=== PATIENT | male | born 1955 | race Caucasian/White ===

== ENCOUNTER 2017-02-13 17:36 | Emergency (ER) | payer MEDICARE ==
[2017-02-13 18:12] LABS: Mean Cell Volume 87.7 fl (78-100); Mean Corpuscular Hemoglobin 26.9 pg (26-32); Mean Platelet Volume 10.6 fl (6-9.5); Platelet Count 152 K/mm3 (150-450); Red Blood Count 5.05 M/mm3 (4.1-5.6); Red Cell Distribution Width 15.2 % (11.5-14.0); White Blood Count 11.4 K/mm3 (4.0-10.5)
--- NOTE | 2017-02-13 18:17 | ERPHSYRPT ---
- History of Present Illness Time Seen by Provider: 02/13/17 17:45 Source: patient Patient Subjective Stated Complaint: pt states he has had a fever for e past few days and states he has had hematuria for the past week. denies any vomiting. denies any cough. Triage Nursing Assessment: pt flushed warm, dry. hematuria noted with clots in urine sample. Physician History: CC: aches Hx: 62 y/o male patient had diarrhea Wednesday. Fever and chills and myalgias now. He has hematuria and increased urinary frequency. He has fever and chills. urinating every 1 hour. Some dribbling. Chronic low back pain. He is a chronic drinker of alcohol. No chest or abd pain. No rash. Timing/Duration: day(s) (couple) Severity: moderate Allergies/Adverse Reactions: No Known Drug Allergies Allergy (Unverified 02/13/17 18:03) Home Medications: Aspirin EC 81 mg [Ecotrin 81 mg] 81 tab PO DAILY 03/16/12 [History] Hx Tetanus, Diphtheria Vaccination/Date Given: Yes (unknown) Hx Influenza Vaccination/Date Given: No Hx Pneumococcal Vaccination/Date Given: No Immunizations Up to Date: Yes - Review of Systems Constitutional: Fever, Chills, Fatigue, Malaise, Weakness Eyes: No Symptoms Ears, Nose, & Throat: No Throat Pain Respiratory: Cough Cardiac: No Chest Pain Abdominal/Gastrointestinal: Diarrhea (Wednesday), No Abdominal Pain, No Nausea, No Vomiting, No Hematochezia Genitourinary Symptoms: Frequency, Hematuria, No Dysuria Skin: No Rash Neurological: No Headache All Other Systems: Reviewed and Negative - Past Medical History Pertinent Past Medical History: Yes Neurological History: No Pertinent History ENT History: No Pertinent History Cardiac History: No Pertinent History Respiratory History: No Pertinent History Endocrine Medical History: No Pertinent History Musculoskeletal History: Fractures GI Medical History: No Pertinent History History: Other Psycho-Social History: No Pertinent History Male Reproductive Disorders: Other Other Medical History: BOTH LUNGS COLLAPSED -2010. LEFT HIP FRACTURE. PT TAKES SCHEULED FLOMAX (UNSURE WHY). - Past Surgical History Past Surgical History: Yes Neuro Surgical History: No Pertinent History Cardiac: No Pertinent History Respiratory: Other Gastrointestinal: Appendectomy Genitourinary: No Pertinent History Musculoskeletal: Orthopedic Surgery Male Surgical History: No Pertinent History Other Surgical History: left hip fx. and previous left wrist fx - Social History Smoking Status: Current every day smoker How long have you smoked: 48 Exposure to second hand smoke: Yes Alcohol Use: Chronic Drug Use: marijuana Patient Lives Alone: No Significant Family History: no pertinent family hx - Nursing Vital Signs Nursing Vital Signs: Initial Vital Signs Temperature 98.5 F 02/13/17 17:56 Pulse Rate 78 02/13/17 17:56 Respiratory Rate 22 02/13/17 17:56 Blood Pressure 160/94 02/13/17 17:56 O2 Sat by Pulse Oximetry 95 02/13/17 17:56 Pain Scale Pain Intensity 0 - Physical Exam General Appearance: alert Eye Exam: PERRL/EOMI Ears, Nose, Throat Exam: moist mucous membranes Neck Exam: normal inspection, non-tender, supple Respiratory Exam: diminished breath sounds Cardiovascular Exam: regular rate/rhythm Gastrointestinal/Abdomen Exam: soft, No tenderness, No distention, No guarding Male Genitalia Exam: normal genitalia, No testicular tenderness Neurologic Exam: alert, oriented x 3, cooperative, sensation nml, No motor deficits Skin Exam: dry, other (cool skin) SpO2 Interpretation: normal SpO2: 95 Oxygen Delivery: Room Air - Course Nursing assessment & vital signs reviewed: Yes EKG Interpreted by Me: RATE (76), Sinus Rhythm, NORMAL AXIS, NORMAL INTERVALS ( QTc 425), NORMAL QRS, NORMAL ST-T - Radiology Exams cxr X-ray Interpretation: Interpreted by me (RLL infiltrate, moderate congestion, CM.) - Radiology Ultrasound Exam renal Ultrasound: Other (per RDMS: left intraparenchymal stones, no hydronephrosis, no significant urine retention, bladder wall thickneing. Round multiple hyperechoic lesions within the spleen.) Ordered Tests: Active Orders 24 hr Category Date Time Status [place] Worker STAT Care 02/13/17 17:55 Active Clean Catch Urine Specimen STAT Care 02/13/17 17:55 Active EKG-ER Only STAT Care 02/13/17 17:55 Active Pulse Oximetry (ED) STAT Care 02/13/17 17:55 Active Saline Lock STAT Care 02/13/17 17:55 Active CHEST 1 VIEW (PORTABLE) Stat Exams 02/13/17 17:55 Taken KIDNEY [US] Stat Exams 02/13/17 18:22 Ordered BLOOD CULTURE Stat Lab 02/13/17 18:25 Received CBC W DIFF Stat Lab 02/13/17 17:50 Completed CK-Creatinine Phosphokinase Stat Lab 02/13/17 17:56 Completed CMP Stat Lab 02/13/17 17:50 Completed CULTURE, THROAT Stat Lab 02/13/17 17:20 Received CULTURE,URINE Stat Lab 02/13/17 17:50 Received ETHYL ALCOHOL Stat Lab 02/13/17 17:50 Completed Lactic Acid Stat Lab 02/13/17 18:04 Completed Manual Differential NC Stat Lab 02/13/17 17:50 Completed PROTIME WITH INR Stat Lab 02/13/17 17:50 Completed PTT Stat Lab 02/13/17 17:50 Completed STREP SCREEN-BETA A Stat Lab 02/13/17 17:20 Completed UA W/ MICROSCOPIC Stat Lab 02/13/17 17:50 Completed Urine Triage Profile Stat Lab 02/13/17 17:50 Completed Lab/Rad Data: Laboratory Result Diagrams 02/13/17 17:50 02/13/17 17:50 Laboratory Results 02/13/17 02/13/17 02/13/17 Range/Units 18:04 17:56 17:50 WBC (4.0-10.5) K/mm3 RBC (4.1-5.6) M/mm3 Hgb (12.5-18.0) gm/dl Hct (42-50) % MCV (78-100) fl MCH (26-32) pg MCHC (32-36) g/dl RDW (11.5-14.0) % Plt Count (150-450) K/mm3 MPV (6-9.5) fl INR (0.8-3.0) APTT (24.1-36.1) SECONDS Sodium (136-145) mEq/L Potassium (3.5-5.1) mEq/L Chloride (98-107) mEq/L Carbon Dioxide (21-32) mEq/L Anion Gap (5-15) MEQ/L BUN (9-20) mg/dL Creatinine (0.55-1.30) mg/dl Estimated GFR ML/MIN Glucose (70-110) MG/DL Lactic Acid 1.0 (0.4-2.0) Calcium (8.5-10.1) mg/dL Total Bilirubin (0.2-1.0) mg/dL AST (15-37) U/L ALT (12-78) U/L Alkaline Phosphatase (46-116) U/L Creatine Kinase 25 L (39-308) U/L Serum Total Protein (6.4-8.2) gm/dL Albumin (3.4-5.0) g/dL Ur Collection Type Urine Color (YELLOW) Urine Appearance (CLEAR) Urine pH (5-6) Ur Specific [place] (1.005-1.025) Urine Protein (Negative) Urine Ketones (NEGATIVE) Urine Blood (0-5) Joe/ul Urine Nitrite (NEGATIVE) Urine Bilirubin (NEGATIVE) Urine Urobilinogen (0-1) mg/dL Ur Leukocyte Esterase (NEGATIVE) Urine Microscopic RBC (0-2) /HPF Urine Microscopic WBC (0-5) /HPF Urine Bacteria (NEGATIVE) /HPF Urine Glucose (NEGATIVE) mg/dL Urine Opiates Level NEG. (NEGATIVE) Ur Methadone NEG. (NEGATIVE) Urine Barbiturates NEG. (NEGATIVE) Ur Phencyclidine (PCP) NEG. (NEGATIVE) Urine Amphetamine NEG. (NEGATIVE) U Benzodiazepine Level NEG. (NEGATIVE) Urine Cocaine NEG. (NEGATIVE) Urine Marijuana (THC) NEG. (NEGATIVE) Ethyl Alcohol (0.00-0.01) % Streptococcus Screen (Negative) Specimen Received 02/13/17 02/13/17 02/13/17 Range/Units 17:50 17:50 17:50 WBC (4.0-10.5) K/mm3 RBC (4.1-5.6) M/mm3 Hgb (12.5-18.0) gm/dl Hct (42-50) % MCV (78-100) fl MCH (26-32) pg MCHC (32-36) g/dl RDW (11.5-14.0) % Plt Count (150-450) K/mm3 MPV (6-9.5) fl INR 1.15 (0.8-3.0) APTT 29.1 (24.1-36.1) SECONDS Sodium 139 (136-145) mEq/L Potassium 4.5 (3.5-5.1) mEq/L Chloride 102 (98-107) mEq/L Carbon Dioxide 26.4 (21-32) mEq/L Anion Gap 15.2 H (5-15) MEQ/L BUN 26 H (9-20) mg/dL Creatinine 1.02 (0.55-1.30) mg/dl Estimated GFR > 60 ML/MIN Glucose 108 (70-110) MG/DL Lactic Acid (0.4-2.0) Calcium 9.2 (8.5-10.1) mg/dL Total Bilirubin 0.70 (0.2-1.0) mg/dL AST 23 (15-37) U/L ALT 65 (12-78) U/L Alkaline Phosphatase 79 (46-116) U/L Creatine Kinase (39-308) U/L Serum Total Protein 7.6 (6.4-8.2) gm/dL Albumin 3.0 L (3.4-5.0) g/dL Ur Collection Type Urine Color (YELLOW) Urine Appearance (CLEAR) Urine pH (5-6) Ur Specific [place] (1.005-1.025) Urine Protein (Negative) Urine Ketones (NEGATIVE) Urine Blood (0-5) Joe/ul Urine Nitrite (NEGATIVE) Urine Bilirubin (NEGATIVE) Urine Urobilinogen (0-1) mg/dL Ur Leukocyte Esterase (NEGATIVE) Urine Microscopic RBC (0-2) /HPF Urine Microscopic WBC (0-5) /HPF Urine Bacteria (NEGATIVE) /HPF Urine Glucose (NEGATIVE) mg/dL Urine Opiates Level (NEGATIVE) Ur Methadone (NEGATIVE) Urine Barbiturates (NEGATIVE) Ur Phencyclidine (PCP) (NEGATIVE) Urine Amphetamine (NEGATIVE) U Benzodiazepine Level (NEGATIVE) Urine Cocaine (NEGATIVE) Urine Marijuana (THC) (NEGATIVE) Ethyl Alcohol < 0.010 (0.00-0.01) % Streptococcus Screen (Negative) Specimen Received 02/13/17 02/13/17 02/13/17 Range/Units 17:50 17:50 17:20 WBC 11.4 H (4.0-10.5) K/mm3 RBC 5.05 (4.1-5.6) M/mm3 Hgb 13.6 (12.5-18.0) gm/dl Hct 44.3 (42-50) % MCV 87.7 (78-100) fl MCH 26.9 (26-32) pg MCHC 30.7 L (32-36) g/dl RDW 15.2 H (11.5-14.0) % Plt Count 152 (150-450) K/mm3 MPV 10.6 H (6-9.5) fl INR (0.8-3.0) APTT (24.1-36.1) SECONDS Sodium (136-145) mEq/L Potassium (3.5-5.1) mEq/L Chloride (98-107) mEq/L Carbon Dioxide (21-32) mEq/L Anion Gap (5-15) MEQ/L BUN (9-20) mg/dL Creatinine (0.55-1.30) mg/dl Estimated GFR ML/MIN Glucose (70-110) MG/DL Lactic Acid (0.4-2.0) Calcium (8.5-10.1) mg/dL Total Bilirubin (0.2-1.0) mg/dL AST (15-37) U/L ALT (12-78) U/L Alkaline Phosphatase (46-116) U/L Creatine Kinase (39-308) U/L Serum Total Protein (6.4-8.2) gm/dL Albumin (3.4-5.0) g/dL Ur Collection Type CLEAN CATCH Urine Color RED (YELLOW) Urine Appearance CLOUDY (CLEAR) Urine pH 7.5 (5-6) Ur Specific [place] 1.010 (1.005-1.025) Urine Protein 30 (Negative) Urine Ketones NEGATIVE (NEGATIVE) Urine Blood 250 (0-5) Joe/ul Urine Nitrite POSITIVE (NEGATIVE) Urine Bilirubin NEGATIVE (NEGATIVE) Urine Urobilinogen NORMAL (0-1) mg/dL Ur Leukocyte Esterase 2+ (NEGATIVE) Urine Microscopic RBC >100 (0-2) /HPF Urine Microscopic WBC 50-100 (0-5) /HPF Urine Bacteria MANY (NEGATIVE) /HPF Urine Glucose NEGATIVE (NEGATIVE) mg/dL Urine Opiates Level (NEGATIVE) Ur Methadone (NEGATIVE) Urine Barbiturates (NEGATIVE) Ur Phencyclidine (PCP) (NEGATIVE) Urine Amphetamine (NEGATIVE) U Benzodiazepine Level (NEGATIVE) Urine Cocaine (NEGATIVE) Urine Marijuana (THC) (NEGATIVE) Ethyl Alcohol (0.00-0.01) % Streptococcus Screen NEGATIVE (Negative) Specimen Received 02/13/17 7270 - Progress Progress Note: 02/13/17 19:04 Pt denies taking blood thinners at present. He has UTI and some pneumonia on cxr. Uncertain etiology of splenic lesions. Called Dr Sara Enriquez and will place in obs for IV levaquin. Discussed with DrElizabeth: Terri Will see patient in: hospital (observation) Counseled pt/family regarding: lab results, diagnosis, need for follow-up, rad results - Departure Time of Disposition: 19:05 Departure Disposition: Observation Clinical Impression: UTI (urinary tract infection), Hematuria, RLL pneumonia, Lesion of spleen Condition: Fair Critical Care Time: No
[2017-02-13 18:29] LABS: INR 1.15 (0.8-3.0); PROTIME 12.8 SECONDS (8.83-12.87)
[2017-02-13 18:32] LABS: PTT 29.1 SECONDS (24.1-36.1)
[2017-02-13 18:34] LABS: Collection Type CLEAN CATCH
[2017-02-13 18:38] LABS: ALKALINE PHOSPHATASE 79 U/L (46-116); ANION GAP 15.2 MEQ/L (5-15); BLOOD UREA NITROGEN 26 mg/dL (9-20); CHLORIDE 102 mEq/L (98-107); Carbon Dioxide 26.4 mEq/L (21-32); Glucose 108 MG/DL (70-110); Potassium 4.5 mEq/L (3.5-5.1); SGOT/AST 23 U/L (15-37); SGPT/ALT 65 U/L (12-78); SODIUM 139 mEq/L (136-145); Total Protein 7.6 gm/dL (6.4-8.2)
[2017-02-13 18:47] LABS: Leukocyte Esterase 2+ (NEGATIVE)
[2017-02-13 18:48] LABS: Bilirubin NEGATIVE (NEGATIVE); Blood 250 Ery/ul (0-5); COMPLETE URINE MICROSCOPIC? YES; Glucose NEGATIVE (NEGATIVE)
[2017-02-13 18:51] LABS: Bacteria MANY /HPF (NEGATIVE); WBC 50-100 /HPF (0-5)
[2017-02-13] MEDS ORDERED: LEVOFLOXACIN 750MG/150ML D5W 750 MG/150 ML BAG IV STA (19:07)
[2017-02-13] MEDS ORDERED: LEVOFLOXACIN 750MG/150ML D5W 750 MG/150 ML BAG IV ONE (19:10)
[2017-02-13] MEDS ORDERED: TYLENOL 325 MG PO PRN (20:07)
[2017-02-13] MEDS: Nicoderm CQ 21 MG TOP SCH (20:47)
[2017-02-13 21:50] LABS: Basophil 1 % (0.0-1.0); Eosinophil 1 % (0.00-3.0); Platelet Estimate NORMAL (NORMAL); Total Cells Counted 100
[2017-02-14 05:21] LABS: Mean Cell Volume 87.8 fl (78-100); Mean Platelet Volume 10.6 fl (6-9.5); Platelet Count 158 K/mm3 (150-450); Red Blood Count 4.85 M/mm3 (4.1-5.6); Red Cell Distribution Width 15.1 % (11.5-14.0); White Blood Count 9.2 K/mm3 (4.0-10.5)
[2017-02-14 06:07] LABS: BLOOD UREA NITROGEN 22 mg/dL (9-20); CHLORIDE 103 mEq/L (98-107); Carbon Dioxide 27.6 mEq/L (21-32); Glucose 103 MG/DL (70-110); Potassium 4.4 mEq/L (3.5-5.1); SODIUM 139 mEq/L (136-145)
[2017-02-14 07:49] LABS: BAND 2 % (0.0-2.0); Platelet Estimate NORMAL (NORMAL); Total Cells Counted 100; Toxic Granulation 1+
[2017-02-14 07:50] LABS: ANISOCYTOSIS 1+
--- NOTE | 2017-02-14 08:34 | XRAY ---
Indication: Hematuria. Fever. Two-dimensional renal sonogram performed. Comparison: None Both kidneys normal in reniform shape with normal color flow. Right kidney measures 13.9 x 6.6 x 6.4 cm and the left measures 13.6 x 5.2 x 7.2 cm. There is a 1.3 cm left mid renal calculus and a 3 cm left lower pole cyst. No other renal mass, hydronephrosis, or perinephric fluid. Images of the urinary bladder grossly unremarkable. The spleen is enlarged measuring 16.4 cm and demonstrates small round echogenicities, largest 1.8 cm. No perisplenic fluid. Impression: 1. Nonobstructing left renal calculus and simple cyst. 2. Negative right renal sonogram. 3. Incidental splenomegaly with small round echogenicities. CT with and without contrast may yield further information. Comment: Preliminary report was given.
--- NOTE | 2017-02-14 08:34 | XRAY ---
Indication: Fever. COPD. Comparison: January 15, 2012. Portable chest again hyperinflated with subtle bibasilar infiltrates versus atelectasis. No consolidation/large effusion. Heart is not enlarged. Bony thorax intact.
--- NOTE | 2017-02-14 09:15 | PCM.HP ---
History of Present Illness - Chief Complaint Chief Complaint: UTI, RLL pneumonia Date: 02/14/17 History of Present Illness: is a 62 year old male. who has been having increasing urinating problems for a few years now and over the last 2 months has had increased urinary frequency and some pain and the last week he has been having fevers chills weakness and confusion. He started urinating large amounts of blood yesterday and finally came to get checked out was found to have evidence of UTI and possibly pneumonia he is feeling a little better this am still urinating frequently no longer having blood. tolerating po now. - Review of Systems Constitutional: Fever, Chills, Fatigue Eyes: No Symptoms Ears, Nose, & Throat: No Symptoms Respiratory: Cough, No Short Of Breath Cardiac: No Chest Pain, No Edema, No Syncope Abdominal/Gastrointestinal: Nausea, No Abdominal Pain, No Vomiting, No Diarrhea Genitourinary Symptoms: Dysuria, Frequency, Hematuria, Urgency Musculoskeletal: No Back Pain, No Neck Pain Skin: No Rash Neurological: No Dizziness, No Focal Weakness, No Sensory Changes Psychological: No Symptoms Endocrine: No Symptoms Hematologic/Lymphatic: No Symptoms Immunological/Allergic: No Symptoms Medications & Allergies Home Medications: Home Medication List No Reportable Medications [No Reported Medications] 02/13/17 [History Confirmed 02/13/17] Allergies/Adverse Reactions: Allergies Allergy/AdvReac Type Severity Reaction Status Date / Time No Known Drug Allergies Allergy Unverified 02/13/17 18:03 - Past Medical History Past Medical History: Yes Neurological History: No Pertinent History ENT History: No Pertinent History Cardiac History: No Pertinent History Respiratory History: No Pertinent History Endocrine Medical History: No Pertinent History Musculoskelatal History: Fractures GI Medical History: No Pertinent History History: No Pertinent History Pyscho-Social History: No Pertinent History Male Reproductive Disorders: No Pertinent History Comment: BOTH LUNGS COLLAPSED -2010. LEFT HIP FRACTURE. - Past Surgical History Past Surgical History: Yes Neuro Surgical History: No Pertinent History Cardiac History: No Pertinent History Respiratory Surgery: Other GI Surgical History: Appendectomy Genitourinary Surgical Hx: No Pertinent History Musculskeletal Surgical Hx: Orthopedic Surgery Male Surgical History: No Pertinent History Other Surgical History: left hip fx. and previous left wrist fx - Social History Smoking Status: Current every day smoker How long have you smoked: 48 Exposure to second hand smoke: Yes Alcohol: Weekly Drug Use: marijuana Significant Family History: no pertinent family hx - Physical Exam Vital Signs: Vital Signs - 24 hr Temp Pulse Resp BP Pulse Ox 02/14/17 07:32 98.1 F 84 18 146/68 94 L 02/14/17 06:50 94 L 02/14/17 04:00 97.9 F 80 19 146/73 93 L 02/14/17 00:00 98.6 F 91 H 19 146/73 93 L 02/13/17 20:28 98.4 F 95 H 18 162/77 92 L 02/13/17 20:23 78 18 91 L 02/13/17 19:06 95 02/13/17 18:58 86 20 133/78 95 02/13/17 18:25 98.5 F 02/13/17 18:15 95 02/13/17 17:56 98.5 F 78 22 160/94 95 Oxygen-Last 24 hours O2 Percentage 2 Liters = 28% O2 Percentage 2 Liters = 28% O2 Percentage 2 Liters = 28% O2 Percentage 2 Liters = 28% General Appearance: no apparent distress, alert, obese Neurologic Exam: alert, oriented x 3, cooperative, normal mood/affect, nml cerebellar function, nml station & gait, sensation nml, No motor deficits Eye Exam: PERRL/EOMI, eyes nml inspection Ears, Nose, Throat Exam: normal ENT inspection, TMs normal, pharynx normal, moist mucous membranes Neck Exam: normal inspection, non-tender, supple, full range of motion Respiratory Exam: normal breath sounds, lungs clear, No respiratory distress Cardiovascular Exam: regular rate/rhythm, normal heart sounds, normal peripheral pulses Gastrointestinal/Abdomen Exam: soft, normal bowel sounds, No tenderness, No mass Back Exam: normal inspection, normal range of motion, No CVA tenderness, No vertebral tenderness Extremity Exam: normal inspection, normal range of motion, pelvis stable Skin Exam: normal color, warm, dry, No rash Lymphatic Exam: No adenopathy Results - Labs Lab/Micro Results: Lab Results-Last 24 Hours 02/14/17 02/14/17 Range/Units 05:19 05:19 WBC 9.2 (4.0-10.5) K/mm3 RBC 4.85 (4.1-5.6) M/mm3 Hgb 13.1 (12.5-18.0) gm/dl Hct 42.6 (42-50) % MCV 87.8 (78-100) fl MCH 27.0 (26-32) pg MCHC 30.8 L (32-36) g/dl RDW 15.1 H (11.5-14.0) % Plt Count 158 (150-450) K/mm3 MPV 10.6 H (6-9.5) fl Segmented Neutrophils 67 H (36.-66.) % Band Neutrophils 2 (0.0-2.0) % Lymphocytes (Manual) 16 L (24-44) % Monocytes (Manual) 15 H (0.0-12.0) % Differential Comment ABNORMAL Toxic Granulation 1+ Platelet Estimate NORMAL (NORMAL) Anisocytosis 1+ Sodium 139 (136-145) mEq/L Potassium 4.4 (3.5-5.1) mEq/L Chloride 103 (98-107) mEq/L Carbon Dioxide 27.6 (21-32) mEq/L Anion Gap 13.0 (5-15) MEQ/L BUN 22 H (9-20) mg/dL Creatinine 0.88 (0.55-1.30) mg/dl Estimated GFR > 60 ML/MIN Glucose 103 (70-110) MG/DL Calcium 8.7 (8.5-10.1) mg/dL - Radiology Impressions Radiology Exams & Impressions: Radiology Procedures Category Date Time Status ABDOMEN AND PELVIS W&WO CONTRA [CT] Routine Exams 02/14/17 09:00 Ordered - Other Procedures and Tests Respiratory Therapy 02/13/17 21:21 Oxygen NASAL CANNULA 2 lpm 02/13/17 21:22 BiPap/CPAP Assessment ROUTINE Assessment/Plan (1) UTI (urinary tract infection) Current Visit: Yes Status: Acute Assessment & Plan: improving it appears on the levaquin will continue to cover any possible pneumonia with the lesions on the spleen radiology recommends ct with and without contrast will do this to f/u on those if continues to improve will hopefully be able to d/c home today on po levaquin also will start flomax Code(s): N39.0 - URINARY TRACT INFECTION, SITE NOT SPECIFIED (2) Hematuria Current Visit: Yes Status: Acute Code(s): R31.9 - HEMATURIA, UNSPECIFIED (3) Lesion of spleen Current Visit: Yes Status: Acute Code(s): D73.9 - DISEASE OF SPLEEN, UNSPECIFIED
[2017-02-14] MEDS: LEVOFLOXACIN 750MG/150ML D5W 750 MG/150 ML BAG IV SCH ×2 (09:55→22:23)
[2017-02-14] MEDS: Flomax 0.4 MG PO SCH (09:55)
[2017-02-14] MEDS ORDERED: FLUCELVAX QUAD 2017-2018 SYR IM ONE (10:00)
--- NOTE | 2017-02-14 17:16 | XRAY ---
Indication: Hematuria. Splenic abnormality on renal sonogram. Multiple contiguous axial images obtained through the abdomen and pelvis prior to and following 80 cc Isovue-370 contrast only. Comparison: None Lung bases demonstrates minimal bibasilar dependent atelectasis/scarring. Heart is not enlarged. Noncontrasted images demonstrates a 3 cm left renal staghorn calculus. There is also mild hydronephrosis, mild perinephric stranding, tiny perinephric fluid, and 15 mm hydroureter favoring obstructive uropathy. No distal ureteral calculus. Incidental 3 cm left lower pole renal cyst. Right kidney negative for calculus or evidence for obstructive uropathy. 1 cm left adrenal adenoma. Noncontrasted stomach and bowel loops appear nonobstructed. Previous reported appendectomy. Postcontrast images demonstrates normal visceral enhancement and renal excretion. Spleen is enlarged measuring 15.7 cm in greatest axial dimension. No suspicious splenic mass or calcifications. Remaining liver, gallbladder, pancreas, right adrenal gland, and bladder appear unremarkable. Mild aortoiliac calcifications. No AAA or pathological retroperitoneal lymphadenopathy. Osseous structures intact with mild/moderate degenerative changes throughout the spine. There has been left hip arthroplasty with intact bipolar prosthesis producing beam artifact. Advanced degenerative changes of the right hip. Small fatty right inguinal hernia. Impression: 1. Left renal staghorn calculus with features favoring obstructive uropathy. Incidental 3 cm left renal cyst. 2. Splenomegaly. No suspicious splenic mass. 3. Incidental left adrenal adenoma and small fatty right inguinal hernia. 4. Degenerative changes of the spine and right hip. Left hip arthroplasty. Comment: Preliminary interpretation was made by [facility]. No critical discrepancy. CTDI 23.68
[2017-02-14] MEDS ORDERED: Ambien 10 MG PO PRN (20:27)
[2017-02-14] MEDS: Nicoderm CQ 21 MG TOP SCH (22:22)
[2017-02-15] MEDS ORDERED: Sodium Chloride 0.9% 1000 ML 1,000 ML ONE (01:46)
[2017-02-15] MEDS ORDERED: Cardizem IV 50 MG/10 ML IV ONE (01:50)
[2017-02-15] MEDS ORDERED: Nitrostat 0.4 MG Tablet SL ONE ×2 (01:55→02:01)
[2017-02-15] MEDS ORDERED: BABY ASPIRIN 81 MG CHEW PO ONE (01:55)
[2017-02-15] MEDS ORDERED: ECOTRIN 81 MG PO ONE (02:01)
[2017-02-15 02:13] LABS: Mean Cell Volume 86.5 fl (78-100); Mean Corpuscular Hemoglobin 26.8 pg (26-32); Mean Platelet Volume 10.5 fl (6-9.5); Platelet Count 209 K/mm3 (150-450); Red Blood Count 5.42 M/mm3 (4.1-5.6); White Blood Count 11.5 K/mm3 (4.0-10.5)
[2017-02-15 02:24] LABS: ALBUMIN 2.9 g/dL (3.4-5.0); ALKALINE PHOSPHATASE 78 U/L (46-116); ANION GAP 14.2 MEQ/L (5-15); BLOOD UREA NITROGEN 24 mg/dL (9-20); CHLORIDE 102 mEq/L (98-107); Carbon Dioxide 25.8 mEq/L (21-32); Glucose 139 MG/DL (70-110); Potassium 4.7 mEq/L (3.5-5.1); SGOT/AST 20 U/L (15-37); SGPT/ALT 58 U/L (12-78); SODIUM 137 mEq/L (136-145); TROPONIN < 0.017 ng/ml (0.000-0.056); Total Protein 7.4 gm/dL (6.4-8.2)
[2017-02-15 02:43] LABS: ATYPICAL LYMPHS 1 %; BAND 5 % (0.0-2.0); Platelet Estimate NORMAL (NORMAL); Total Cells Counted 100
[2017-02-15] MEDS ORDERED: Nitrostat 0.4 MG Tablet SL PRN (02:46)
[2017-02-15] MEDS ORDERED: CARDIZEM DRIP 100 MG/100 ML D5W 100 ML IV PRN (02:57)
[2017-02-15] MEDS ORDERED: Sodium Chloride 0.9% 500 ML 500 ML IV SCH (03:00)
[2017-02-15] MEDS ORDERED: Zofran 4 MG/2 ML VIAL IV PRN (03:01)
[2017-02-15] MEDS ORDERED: Sodium Chloride 0.9% 1000 ML 1,000 ML IV STA (03:16)
[2017-02-15 03:24] LABS: INR 1.13 (0.8-3.0); PROTIME 12.6 SECONDS (8.83-12.87)
[2017-02-15] MEDS ORDERED: Sodium Chloride 0.9% 1000 ML 1,000 ML IV SCH (04:45)
[2017-02-15] MEDS: Flomax 0.4 MG PO SCH (09:14)
--- NOTE | 2017-02-15 09:15 | XRAY ---
Indication: SVT. Comparison: February 13, 2017. Portable chest again hyperinflated with clearing of the previous bibasilar opacities. No focal infiltrate, consolidation, or large effusion. Again a few calcified granulomas. Heart is not enlarged. Vascularity normal. Impression: Nonacute hyperinflated chest. Comment: Preliminary interpretation was made by [facility]. No discrepancy.
--- NOTE | 2017-02-15 09:27 | PCM.DCORD ---
- Discharge Discharge Date: 02/15/17 Disposition: Home, Self-Care Condition: Fair Prescriptions: New Diltiazem HCl [Diltiazem 24Hr Cd] 180 mg PO DAILY #30 cap.er.24h Tamsulosin HCl 0.4 mg [Flomax 0.4 MG] 0.4 mg PO DAILY #30 cap Levofloxacin [Levaquin] 500 mg PO DAILY #14 tablet Additional Instructions: Go To Dr. Dunbar's office in [facility] this afternoon. Take the CD with the CT scan images on it to the appointment. Follow up with: CAIO MCDONALD [Primary Care Provider] - 1 Week
[2017-02-15] MEDS ORDERED: BABY ASPIRIN 81 MG CHEW PO SCH (10:00)
[2017-02-15] MEDS ORDERED: ECOTRIN 81 MG PO SCH (10:00)
[2017-02-15] MEDS ORDERED: Cardizem CD 180 MG PO SCH (10:00)
[2017-02-15 11:03] VITALS: PULSE 79
[2017-02-15 11:04] VITALS: BP 152/81; O2SAT 97
--- NOTE | 2017-02-15 13:53 | PCM.DS ---
Discharge Summary Date of Admission: 02/13/17 19:54 Date of Discharge: 02/15/17 Admitting Physician: CAIO MCDONALD Consults: Consults on Case 02/15/17 02:50 Consult Cardiology ROUTINE Primary Care Provider: CAIO MCDONALD Allergies Allergies No Known Drug Allergies Allergy (Unverified 02/13/17 18:03) Hospital Summary - Hospital Course Hospital Course: he presented with fever and chills dysuria and weakness and nausea for several weeks then developed gross hematuria and he came to the ED. he was found to have a UTI. He was started on levaquin and did well the urinating improved blood cleared. He had abdominal u/s in ED and showed some concern for findings on the spleen so CT was obtained and this showed 3cm staghorn calculus on the left with hydronephrosis and stranding concerning for infected staghorn calculus. He was clinically doing well from infection standpoint and no significant pain no fever and urinating well. He was started on flomax. THe UTI wa sdue to E. coli pansensitive. The case was discussed with Dante Sherman who relayed the information to Dr. Dunbar of urology for decision for tranfer vs outpatient f/u and Dr. Dunbar advised outpatient f/u today in his office this afternoon with the images for possible outpatient procedure tomorrow if indicated and continue the antibiotic. Early this am he started having palpitations and ED physician was called for in house evaluation when pulse showed 180. He had ekg showed likely re entry svt. He was given a bolus of cardizem by Dr. Maldonado from the ED and immediately slowed to sinus rhythm. He had no changes on subsequent ekg and he was monitored overnight and they kept him on cardizem gtt for about 5 hours and remained in sinus rhythm and asymptomatic for the whole time. He had negative troponins drawn following this and no chest pain or sob. He notes he has had this in the past as well at times of stress or consuming too much alcohol and usually self resolves and has never been treated for it in the past. will continue on po cardizem at time of discharge for prevention of recurrence. - Vitals & Intake/Output Vital Signs: Vital Signs Temperature 97.5 F 02/15/17 08:00 Pulse Rate 79 02/15/17 10:20 Respiratory Rate 20 02/15/17 10:20 Blood Pressure 152/81 02/15/17 10:20 O2 Sat by Pulse Oximetry 97 02/15/17 10:20 Oxygen-Last Documented O2 Percentage 2 Liters = 28% Intake & Output: Intake & Output 02/13/17 02/14/17 02/15/17 02/16/17 11:59 11:59 11:59 11:59 Intake Total 680 1170 Output Total 3175 2745 Balance -2495 -1575 Weight 138.21 kg - Lab Result Diagrams: 02/15/17 02:08 02/15/17 02:08 Lab Results-Last 24 Hrs: Lab Results-Last 24 Hours 02/15/17 02/15/17 02/15/17 Range/Units 02:00 02:00 02:08 WBC 11.5 H (4.0-10.5) K/mm3 RBC 5.42 (4.1-5.6) M/mm3 Hgb 14.5 (12.5-18.0) gm/dl Hct 46.9 (42-50) % MCV 86.5 (78-100) fl MCH 26.8 (26-32) pg MCHC 30.9 L (32-36) g/dl RDW 15.0 H (11.5-14.0) % Plt Count 209 (150-450) K/mm3 MPV 10.5 H (6-9.5) fl Segmented Neutrophils 76 H (36.-66.) % Band Neutrophils 5 H (0.0-2.0) % Lymphocytes (Manual) 11 L (24-44) % Monocytes (Manual) 7 (0.0-12.0) % Differential Comment NORMAL Atypical Lymphocytes 1 % Platelet Estimate NORMAL (NORMAL) INR 1.13 (0.8-3.0) Sodium (136-145) mEq/L Potassium (3.5-5.1) mEq/L Chloride (98-107) mEq/L Carbon Dioxide (21-32) mEq/L Anion Gap (5-15) MEQ/L BUN (9-20) mg/dL Creatinine (0.55-1.30) mg/dl Estimated GFR ML/MIN Glucose (70-110) MG/DL Lactic Acid (0.4-2.0) Calcium (8.5-10.1) mg/dL Magnesium 2.0 (1.8-2.4) mg/dL Total Bilirubin (0.2-1.0) mg/dL AST (15-37) U/L ALT (12-78) U/L Alkaline Phosphatase (46-116) U/L Troponin I (0.000-0.056) ng/ml Serum Total Protein (6.4-8.2) gm/dL Albumin (3.4-5.0) g/dL 02/15/17 02/15/17 02/15/17 Range/Units 02:08 03:15 05:42 WBC (4.0-10.5) K/mm3 RBC (4.1-5.6) M/mm3 Hgb (12.5-18.0) gm/dl Hct (42-50) % MCV (78-100) fl MCH (26-32) pg MCHC (32-36) g/dl RDW (11.5-14.0) % Plt Count (150-450) K/mm3 MPV (6-9.5) fl Segmented Neutrophils (36.-66.) % Band Neutrophils (0.0-2.0) % Lymphocytes (Manual) (24-44) % Monocytes (Manual) (0.0-12.0) % Differential Comment Atypical Lymphocytes % Platelet Estimate (NORMAL) INR (0.8-3.0) Sodium 137 (136-145) mEq/L Potassium 4.7 (3.5-5.1) mEq/L Chloride 102 (98-107) mEq/L Carbon Dioxide 25.8 (21-32) mEq/L Anion Gap 14.2 (5-15) MEQ/L BUN 24 H (9-20) mg/dL Creatinine 1.24 (0.55-1.30) mg/dl Estimated GFR > 60 ML/MIN Glucose 139 H (70-110) MG/DL Lactic Acid 1.4 (0.4-2.0) Calcium 9.4 (8.5-10.1) mg/dL Magnesium (1.8-2.4) mg/dL Total Bilirubin 0.50 (0.2-1.0) mg/dL AST 20 (15-37) U/L ALT 58 (12-78) U/L Alkaline Phosphatase 78 (46-116) U/L Troponin I < 0.017 < 0.017 (0.000-0.056) ng/ml Serum Total Protein 7.4 (6.4-8.2) gm/dL Albumin 2.9 L (3.4-5.0) g/dL 02/15/17 Range/Units 09:01 WBC (4.0-10.5) K/mm3 RBC (4.1-5.6) M/mm3 Hgb (12.5-18.0) gm/dl Hct (42-50) % MCV (78-100) fl MCH (26-32) pg MCHC (32-36) g/dl RDW (11.5-14.0) % Plt Count (150-450) K/mm3 MPV (6-9.5) fl Segmented Neutrophils (36.-66.) % Band Neutrophils (0.0-2.0) % Lymphocytes (Manual) (24-44) % Monocytes (Manual) (0.0-12.0) % Differential Comment Atypical Lymphocytes % Platelet Estimate (NORMAL) INR (0.8-3.0) Sodium (136-145) mEq/L Potassium (3.5-5.1) mEq/L Chloride (98-107) mEq/L Carbon Dioxide (21-32) mEq/L Anion Gap (5-15) MEQ/L BUN (9-20) mg/dL Creatinine (0.55-1.30) mg/dl Estimated GFR ML/MIN Glucose (70-110) MG/DL Lactic Acid (0.4-2.0) Calcium (8.5-10.1) mg/dL Magnesium (1.8-2.4) mg/dL Total Bilirubin (0.2-1.0) mg/dL AST (15-37) U/L ALT (12-78) U/L Alkaline Phosphatase (46-116) U/L Troponin I < 0.017 (0.000-0.056) ng/ml Serum Total Protein (6.4-8.2) gm/dL Albumin (3.4-5.0) g/dL - Radiology Exams Ordered Rad Exams-Entire Visit: Radiology Procedures Category Date Time Status ABDOMEN AND PELVIS W&WO CONTRA [CT] Routine Exams 02/14/17 09:00 Completed CHEST 1 VIEW (PORTABLE) Urgent Exams 02/15/17 03:08 Completed - Procedures and Test Procedures and Tests throughout Hospitalization: Therapy Orders & Screens 02/13/17 20:43 RT Screen per Nursing Assess ONCE Comment: Protocol Order Physician Instructions: Greater than 3 points order RT Admission Screen Reason For Exam: Triggered on Admission Diagnosis: UTI, RLL pneumonia Diagnosis: UTI, RLL pneumonia Pneumonia: Yes Home O2: No Asthma: No CHF: No Home CPAP/BIPAP: Yes Home Nebs/MDI: No Total Points: 8 Smoking Cessation Education ONCE Comment: Diagnosis: UTI, RLL pneumonia Smoking Status: Current every day smoker How long have you smoked: 48 Have you smoked in the past 12 months: Yes Approximately how many cigarettes per day: 1 pack Do you dip or chew tobacco: No 02/13/17 21:21 Oxygen NASAL CANNULA 2 lpm Comment: TO KEEP SPO2 >92% PER R.T. PROTOCOL Diagnosis: UTI, RLL pneumonia 02/13/17 21:22 BiPap/CPAP Assessment ROUTINE Comment: CPAP AT NIGHT WITH 3L PER PT'S HOME USE Diagnosis: UTI, RLL pneumonia 02/15/17 10:00 EKG ROUTINE Comment: Diagnosis: UTI, RLL pneumonia 02/16/17 05:00 EKG ROUTINE Comment: Diagnosis: UTI, RLL pneumonia 02/17/17 05:00 EKG ROUTINE Comment: Diagnosis: UTI, RLL pneumonia 02/18/17 05:00 EKG ROUTINE Comment: Diagnosis: UTI, RLL pneumonia Discharge Exam General Appearance: no apparent distress, alert, obese Neurologic Exam: alert, oriented x 3, cooperative, normal mood/affect, nml cerebellar function, sensation nml, No motor deficits Skin Exam: normal color, warm, dry Eye Exam: PERRL, EOMI, eyes nml inspection Ears, Nose, Throat Exam: normal ENT inspection, pharynx normal, moist mucous membranes Neck Exam: normal inspection, non-tender, supple, full range of motion Respiratory Exam: normal breath sounds, lungs clear, No respiratory distress Cardiovascular Exam: regular rate/rhythm, normal heart sounds Gastrointestinal/Abdomen Exam: soft, No tenderness, No mass Extremity Exam: normal inspection, normal range of motion Back Exam: normal inspection, normal range of motion, No CVA tenderness, No vertebral tenderness Male Genitalia Exam: deferred Rectal Exam: deferred Final Diagnosis/Problem List - Final Discharge Diagnosis/Problem (1) UTI (urinary tract infection) Status: Acute (2) Hematuria Status: Acute (3) Renal calculus, left Status: Acute (4) Hydronephrosis Status: Acute (5) Reentry tachycardia Status: Acute - Discharge Disposition: Home, Self-Care Condition: Fair Prescriptions: New Diltiazem HCl [Diltiazem 24Hr Cd] 180 mg PO DAILY #30 cap.er.24h Tamsulosin HCl 0.4 mg [Flomax 0.4 MG] 0.4 mg PO DAILY #30 cap Levofloxacin [Levaquin] 500 mg PO DAILY #14 tablet Instructions: Kidney Stones, Urinary Tract Infection (UTI) Additional Instructions: Go To Dr. Dunbar's office in [facility] this afternoon. Take the CD with the CT scan images on it to the appointment. Be at Dr. Dunbar's office by 1200pm [address] [facility] [place] Follow up with: CAIO MCDONALD [Primary Care Provider] - 02/22/17 1:00 pm
== END 2017-02-15 10:40 | disposition home or self-care (01) ==
LOC: ED 17:36 → MED SURG 19:54 → INTOOBSV 02-15 01:30 → OBSVTOIN 02-15 01:30 → ICU 02-15 02:30
PROVIDERS: ADMIT Family Medicine; ATTEND Family Medicine
DX: N39.0 Urinary tract infection, site not specified (principal); R31.9 Hematuria, unspecified; J18.9 Pneumonia, unspecified organism; D73.89 Other diseases of spleen; R50.9 Fever, unspecified; R35.0 Frequency of micturition; R19.7 Diarrhea, unspecified
CPT/HCPCS: 93041; 96374; 96365; 99285; 96360; 93005 ×2; 87040; 81000; 85610 ×2; 85730; 36415 ×3; 82550; 87430; 87186; 83735; 87070; 80307; 85025 ×3; 87077; 80048; 80053 ×2; 84484; 87086; 87631; 71010 ×2; 76770; 74178; 94660 ×3; 94760 ×2; 83605 ×2; G0481; G0008; G0378; J1956; 90682; A9270-GY

== ENCOUNTER 2017-04-05 05:33 | Day surgery (SDC) | payer MEDICARE, OTHER ==
[2017-04-05] MEDS ORDERED: DIPRIVAN 200 MG/20 ML IV ONE (05:34)
[2017-04-05] MEDS ORDERED: Versed 2 MG/2 ML Injection IV ONE (05:34)
[2017-04-05] MEDS ORDERED: Lactated Ringers 1,000 ML IV SCH (06:00)
[2017-04-05] MEDS ORDERED: Lactated Ringers 1,000 ML IV ONE (07:04)
[2017-04-05] MEDS ORDERED: Cardizem IV 50 MG/10 ML IV ONE ×2 (07:08→07:15)
[2017-04-05 09:17] VITALS: BP 184/96; PULSE 84; O2SAT 91
--- NOTE | 2017-04-05 14:59 | OP ---
SURGERY DATE/TIME: 04/05/2017 0755 PREOPERATIVE DIAGNOSIS: Screening exam. POSTOPERATIVE DIAGNOSIS: Normal colon, poor prep. PROCEDURE: Colonoscopy. SURGEON: Dr. Acharya. ANESTHESIA: MAC. Medications given by anesthesia department. HISTORY: The patient is a 62 year-old white male patient presenting now for screening colonoscopy. He was appraised of the risks of the procedure including the risk of perforation, phlebitis, untoward reaction to medication, bleeding and missed lesions. The patient verbalized his understanding and desired to have the procedure performed. DESCRIPTION OF PROCEDURE: The patient was given the medications by the anesthesia department. He had continuous pulse oximetry, ECG monitoring, intermittent blood pressure monitoring and tidal CO2 monitoring during the examination. He was placed in the left lateral decubitus position. A digital rectal examination was performed and revealed normal anal sphincter tone, no masses and normal prostate. The flexible Olympus pediatric colonoscope was used to intubate the rectum. A view of the colon was developed sequentially to the cecum. Upon insertion and withdrawal, including a retroflex view in the rectum, no mucosal lesions were encountered. The scope was removed from the patient who tolerated the procedure well and was sent back to OP recovery in good condition. The prep was noted to be poor but adequate to reach the cecum.
== END 2017-04-05 09:33 | disposition home or self-care (01) ==
LOC: SDC 05:33
PROVIDERS: ATTEND Family Medicine
PROC: 0DJD8ZZ Inspection of Lower Intestinal Tract, Via Natural or Artificial Opening Endoscopic (ICD-10-PCS; principal; 2017-04-05)
DX: Z12.11 Encounter for screening for malignant neoplasm of colon (principal); J44.9 Chronic obstructive pulmonary disease, unspecified
CPT/HCPCS: 00810; J2250; J2704

== ENCOUNTER 2018-01-18 12:07 | Emergency (ER) | payer MEDICARE, OTHER ==
[~2018-01-18 12:07] MED LIST: EPINEPHRINE ABBOJECT 1 MG ONE
--- NOTE | 2018-01-18 12:41 | ERPHSYRPT ---
- History of Present Illness Time Seen by Provider: 01/18/18 12:08 Source: EMS Exam Limitations: clinical condition Physician History: 62 y/o morbidly obese white male s/p hip replacement surgery within last 30 days collapsed in parking lot of [employer]. it was a witnessed arrest. EMS system initiated at approx 1153. cpr started by bystanders. ems intubated pt and continued cpr. left lower ext IO access obtained and pt defribrillated once and three epinephrine injections provided by ems. upon arrival pt was unresponsive, intubated with no spontaneous respirations, cpr in progress and no spontaneous pulse or heart tones. pt in asystole on monitor at time of arrival. Timing/Duration: today Activities at Onset: other (walking to vehicle) Severity of Pain-Max: none Severity of Pain-Current: none Modifying Factors: Improves With: nothing Nitro Today/Relief: no nitro taken today Aspirin Treatment Today: no aspirin today Associated Symptoms: denies symptoms Prior Chest Pain/Cardiac Workup: recent hospitalization Allergies/Adverse Reactions: No Known Drug Allergies Allergy (Verified 04/05/17 06:22) Home Medications: Piroxicam [Feldene] 20 mg PO DAILY 03/25/17 [History] Hx Tetanus, Diphtheria Vaccination/Date Given: Yes (unknown) Hx Influenza Vaccination/Date Given: No Hx Pneumococcal Vaccination/Date Given: No - Review of Systems Constitutional: No Symptoms Eyes: No Symptoms Ears, Nose, & Throat: No Symptoms Respiratory: No Symptoms Cardiac: No Symptoms Abdominal/Gastrointestinal: No Symptoms Genitourinary Symptoms: No Symptoms Musculoskeletal: No Symptoms Skin: No Symptoms Neurological: No Symptoms Psychological: No Symptoms Endocrine: No Symptoms Hematologic/Lymphatic: No Symptoms Immunological/Allergic: No Symptoms All Other Systems: Reviewed and Negative - Past Medical History Pertinent Past Medical History: Yes Neurological History: No Pertinent History ENT History: No Pertinent History Cardiac History: Arrhythmia Respiratory History: COPD Endocrine Medical History: No Pertinent History Musculoskeletal History: Fractures GI Medical History: No Pertinent History History: No Pertinent History Psycho-Social History: No Pertinent History Male Reproductive Disorders: No Pertinent History Other Medical History: BOTH LUNGS COLLAPSED -2009. LEFT HIP FRACTURE. - Past Surgical History Past Surgical History: Yes Neuro Surgical History: No Pertinent History Cardiac: No Pertinent History Respiratory: Other Gastrointestinal: Appendectomy Genitourinary: No Pertinent History Musculoskeletal: Orthopedic Surgery Male Surgical History: No Pertinent History Other Surgical History: left hip fx, and replacement. and previous left wrist fx. foot surgery - Social History Smoking Status: Current every day smoker How long have you smoked: 48 Exposure to second hand smoke: Yes Alcohol Use: Chronic Drug Use: marijuana Patient Lives Alone: No Significant Family History: no pertinent family hx - Physical Exam General Appearance: obese, other (orotrachelly intubated 7.5 ettube; frothy blood tinged fluid present) Eye Exam: other (bilat fixed and dilated pupils) Ears, Nose, Throat Exam: other (see above) Respiratory Exam: other (breath sounds equal but not spontaneous; only present with bagging pt) Cardiovascular Exam: other (no palpable pulses; no spontaneous heart tones. ) Gastrointestinal/Abdomen Exam: other (obese) Rectal Exam: not done Neurologic Exam: other (unresponsive orotracheally intubated) Skin Exam: cyanosis, other (cool) Lymphatic Exam: No adenopathy Oxygen Delivery: Room Air - Course Nursing assessment & vital signs reviewed: Yes Ordered Tests: Active Orders 24 hr Category Date Time Status CBC W DIFF Routine Lab 01/18/18 12:19 Received CMP Routine Lab 01/18/18 12:19 Received TROPONIN Routine Lab 01/18/18 12:19 Received - Progress Progress Note: 01/18/18 12:46 pt underwent cpr beginning at approx 1153. after orotracheal intubation, a single defibrillation, 7 total epinephrine injections, pt not responding neurologically, not breathing on his own, pts bilat pupils fixed and dilated, and pt continues to be in asystole. at 1220 spoke with pts sister, she desires stopping cpr. i agree pt will not respond to further cpr. code arrest called at 1223. 01/18/18 12:52 dr. mcdonald office called and he is off. cross cut saw operator contacted Natividad and she will come to ED - Departure Time of Disposition: 12:23 Departure Disposition: Home Clinical Impression: Cardiac arrest, Cardiac asystole Condition: Critical Care Time: Yes Critical Care Time(excluding separately billable procedures): 30-74 minutes Referrals: CAIO MCDONALD [Primary Care Provider] -
[2018-01-18 13:09] VITALS: PULSE 0
== END 2018-01-18 14:35 | disposition expired ==
LOC: ED 12:07
DX: I46.9 Cardiac arrest, cause unspecified (principal)
CPT/HCPCS: 94799; 99284; 99291; J0171